=== PATIENT | male | born 1950 | race Two or more races ===

== ENCOUNTER 2017-04-16 19:32 | Emergency (ER) | payer OTHER ==
[~2017-04-16] VITALS: Ht 157.5 cm; Wt 104.3 kg
[~2017-04-16 19:32] MED LIST: ATOR1TAB PO; CLON0.1T PO; GABA250S2 PO; HYDR500T13 PO; INSUINJ3 SC; LEVO-28 PO; METO25TA62 PO; NIFE90TA30 PO; POTA10TA51 PO; TRAM-297 PO
[2017-04-16 21:14] LABS: Basophils # (auto) 0 uL; Basophils % (auto) 0.3 % (0.0-2.0); CONDITION AutoValidated; Eosinophils # (auto) 0.3 uL; Eosinophils % (auto) 2.5 % (0.0-7.0); Hematocrit 36.3 % (41.0-53.0); Hemoglobin 12.4 g/dL (13.5-17.5); Lymphocytes % (auto) 17.4 % (10.0-50.0); Mean Corpuscular Hemoglobin 29.2 pg (28.0-32.0); Mean Corpuscular Hgb Conc. 34.3 g/dL (32.0-36.0); Mean Corpuscular Volume 85.1 fL (80.0-100.0); Mean Platelet Volume 7.9 fL (7.4-10.4); Monocytes # (auto) 0.8 uL; Monocytes % (auto) 6.5 % (0.0-12.0); Neutrophils # (auto) 8.6 uL; Neutrophils % (auto) 73.3 % (37.0-80.0); Platelet Count (auto) 277 10^3/uL (140-450); Red Cell Distribution Width 14.1 % (11.6-16.0); White Blood Cell 11.7 10^3/uL (4.4-10.8)
[2017-04-16 21:37] LABS: Albumin 3.2 g/dL (3.4-5.0); BUN/Creatinine Ratio 20.8; Bilirubin, Total 0.3 mg/dL (0.2-1.0); Calcium 8.5 mg/dL (8.5-10.1); Total Protein 7.5 g/dL (6.4-8.2)
[2017-04-16 22:25] VITALS: BP 132/79
== END 2017-04-16 23:08 | disposition home or self-care (01) ==
LOC: ER 19:34
DX: T38.3X1A Poisoning by insulin and oral hypoglycemic [antidiabetic] drugs, accidental (unintentional), initial encounter (principal); E11.9 Type 2 diabetes mellitus without complications; I10 Essential (primary) hypertension; Z79.4 Long term (current) use of insulin; Y92.89 Other specified places as the place of occurrence of the external cause
CPT/HCPCS: 36415; 80053; 82962; 85025